=== PATIENT | female | born 1975 | race Caucasian/White ===

== ENCOUNTER 2020-04-14 13:56 | Outpatient (CLI) | payer OTHER ==
--- NOTE | 2020-04-14 14:44 | MMO ---
Bilateral MAMMO Bilat Screen [facility]. CLINICAL HISTORY: Patient is 44 years old and is seen for screening. The patient has no family history of breast cancer. The patient has a history of ovarian cancer at age 30. VIEWS: The views performed were: bilateral craniocaudal with tomosynthesis; bilateral mediolateral oblique with tomosynthesis; and left craniocaudal. This study has been interpreted with the assistance of computer-aided detection. MAMMOGRAM FINDINGS: There are scattered fibroglandular densities. There are no suspicious masses, suspicious calcifications, or new areas of architectural distortion. IMPRESSION: THERE IS NO MAMMOGRAPHIC EVIDENCE OF MALIGNANCY. A ROUTINE FOLLOW-UP MAMMOGRAM IN 1 YEAR IS RECOMMENDED. THE RESULTS OF THIS EXAM WERE SENT TO THE PATIENT. ACR BI-RADS Category 1 - Negative MAMMOGRAPHY NOTE: 1. A negative mammogram report should not delay a biopsy if a dominant of clinically suspicious mass is present. 2. Approximately 10% to 15% of breast cancers are not detected by mammography. 3. Adenosis and dense breasts may obscure an underlying neoplasm. Reported by: TONY HULL MD Electonically Signed: [id number]
== END 2020-04-14 13:57 | disposition home or self-care (01) ==
LOC: BICMAMMO 13:56
PROVIDERS: ATTEND Family Medicine
DX: Z12.31 Encounter for screening mammogram for malignant neoplasm of breast (principal); Z85.43 Personal history of malignant neoplasm of ovary
CPT/HCPCS: 77063; 77067

== ENCOUNTER 2024-12-24 12:47 | Outpatient (CLI) | payer BC | END 2024-12-24 12:48 | disposition home or self-care (01) | LOC: MRI 12:47 | PROVIDERS: ATTEND Family Medicine Sports Medicine | DX: S46.012A Strain of muscle(s) and tendon(s) of the rotator cuff of left shoulder, initial encounter (principal); M25.422 Effusion, left elbow; M77.8 Other enthesopathies, not elsewhere classified ==

== ENCOUNTER 2025-04-05 14:44 | Outpatient (CLI) | payer BC | END 2025-04-05 14:45 | disposition home or self-care (01) | LOC: SCSRAD 14:44 | PROVIDERS: ATTEND Family Medicine | DX: R07.89 Other chest pain (principal); S22.42XA Multiple fractures of ribs, left side, initial encounter for closed fracture ==